=== PATIENT | female | born 1960 | race Asian ===

== ENCOUNTER 2017-03-09 08:46 | Outpatient (CLI) | payer OTHER ==
[~2017-03-09] VITALS: Ht 157.5 cm; Wt 52.2 kg
[~2017-03-09 08:46] MED LIST: ALLE180T33 PO; AZAT50TA2 PO; COLA100C5 PO; FISH1000 PO; GLUC1CAP9 PO; LIAL1.2T PO; SING10TA32 PO; VITA-182 PO; ZOLO100T PO
[2017-03-09] MEDS ORDERED: NS 1,000 ML IV ONE (09:15)
[2017-03-09] MEDS ORDERED: PROPOFOL 500 MG/50 ML VIAL As Ordered ONE (10:47)
[2017-03-09] MEDS ORDERED: LIDOCAINE 2% INJ 100 MG/5 ML SDV (FOR ANES.) As Ordered ONE (10:47)
--- NOTE | 2017-03-09 11:07 | ROOR ---
Patient Name: Bree Wilson Procedure Date: 03/09/2017 10:41 AM Date of : 1960 Age: 56 Room: [facility] Gender: Female Note Status: Finalized Procedure: Total Colonoscopy to cecum + Bx. Indications: High risk colon cancer surveillance: Ulcerative colitis Providers: Desmond Barriga MD Referring MD: ROLAND WATKINS MD Requesting Provider: Medicines: Monitored Anesthesia Care Complications: No immediate complications. Procedure: Pre-Anesthesia Assessment: - The heart rate, respiratory rate, oxygen saturations, blood pressure, adequacy of pulmonary ventilation, and response to care were monitored throughout the procedure. The Colonoscope was introduced through the anus and advanced to the cecum, identified by appendiceal orifice and ileocecal valve. The colonoscopy was performed without difficulty. The patient tolerated the procedure well. The quality of the bowel preparation was fair. Findings: The perianal and digital rectal examinations were normal. Non-bleeding internal hemorrhoids were found during retroflexion. The hemorrhoids were small and Grade I (internal hemorrhoids that do not prolapse). No other significant abnormalities were identified in a careful examination of the remainder of the colon. Background biopsies were taken for histology with a cold forceps from the ascending colon, transverse colon, descending colon and rectosigmoid colon. These biopsy specimens were sent to Pathology. The exam was otherwise without abnormality on direct and retroflexion views. Impression: - Preparation of the colon was fair. - Non-bleeding internal hemorrhoids. - The examination was otherwise normal on direct and retroflexion views. - Background biopsies were taken from the ascending colon, transverse colon, descending colon and rectosigmoid colon. - The exam was otherwise normal to the cecum. Recommendation: - Patient has a contact number available for emergencies. The signs and symptoms of potential delayed complications were discussed with the patient. Return to normal activities tomorrow. Written discharge instructions were provided to the patient. - High fiber diet. - Discharge patient to home. - Continue present medications. - Await pathology results. - Telephone GI clinic for pathology results in 1 week. - Repeat colonoscopy in 5 years for surveillance based on pathology results. - Return to referring physician. - Check Portal Online for Path Results.([email or web address] - The findings and recommendations were discussed with the patient's family. Desmond Barriga MD Desmond Barriga MD 03/09/2017 11:07:38 AM This report has been signed electronically. Number of Addenda: 0 Note Initiated On: 03/09/2017 10:41 AM Estimated Blood Loss: Estimated blood loss: none.
[2017-03-09 11:25] VITALS: BP 109/56
== END 2017-03-09 11:45 | disposition home or self-care (01) ==
LOC: M OPP 08:46
PROVIDERS: ATTEND Internal Medicine Gastroenterology
DX: R19.7 Diarrhea, unspecified (principal); R10.2 Pelvic and perineal pain; K51.90 Ulcerative colitis, unspecified, without complications; Z86.010 Personal history of colon polyps; K64.0 First degree hemorrhoids; R63.4 Abnormal weight loss; R19.5 Other fecal abnormalities; D64.9 Anemia, unspecified; E78.5 Hyperlipidemia, unspecified; K59.00 Constipation, unspecified; I48.91 Unspecified atrial fibrillation; M19.90 Unspecified osteoarthritis, unspecified site; Z86.79 Personal history of other diseases of the circulatory system; Z98.1 Arthrodesis status; M79.7 Fibromyalgia; G25.81 Restless legs syndrome; F32.9 Major depressive disorder, single episode, unspecified; R51 Headache; G47.8 Other sleep disorders; R06.83 Snoring; F17.290 Nicotine dependence, other tobacco product, uncomplicated; Z88.2 Allergy status to sulfonamides; Z79.899 Other long term (current) drug therapy

== ENCOUNTER → 2018-03-03 | Outpatient (CLI) | payer OTHER | LOC: M RAD 16:26 | DX: R41.3 Other amnesia (principal) | CPT/HCPCS: 70544 ==

== ENCOUNTER → 2018-05-18 | Outpatient (REF) | payer OTHER ==
[2018-05-18 17:24] LABS: BASO # 0.1 10^3/uL (0.0-0.2); BASO % 0.9 % (0.0-1.0); EOS # 0.1 10^3/uL (0.0-0.50); EOS % 1.8 % (0.0-3.0); HEMATOCRIT 45.2 % (36.0-47.0); HEMOGLOBIN 14.7 g/dl (12.0-15.5); IMMATURE GRANULOCYTE % 0.6 % (0-3.0); LYMPH # 1.5 10^3/uL (1.5-4.5); LYMPH % 22.1 % (24.0-44.0); MEAN CORPUSCULAR HEMOGLOBIN 30.6 pg (27.0-33.0); MEAN CORPUSCULAR HGB CONC 32.5 g/dl (32.0-36.5); MONO # 0.4 10^3/uL (0.0-0.8); MONO % 6.4 % (0.0-5.0); NEUTROPHILS # 4.6 10^3/uL (1.8-7.7); NEUTROPHILS % 68.2 % (36.0-66.0); PLATELET COUNT, AUTOMATED 316 10^3/uL (150-450); RED BLOOD COUNT 4.81 10^6/uL (4.00-5.40); RED CELL DISTRIBUTION WIDTH 14.2 % (11.5-14.5); WHITE BLOOD COUNT 6.7 10^3/uL (4.0-10.0)
[2018-05-18 17:37] LABS: ALBUMIN 3.6 GM/DL (3.2-5.2); ALKALINE PHOSPHATASE 50 U/L (45-117); ALT/SGPT 37 U/L (12-78); ANION GAP 6 MEQ/L (8-16); AST/SGOT 29 U/L (7-37); BILIRUBIN,TOTAL 0.3 MG/DL (0.2-1.0); BLOOD UREA NITROGEN 10 MG/DL (7-18); CALCIUM LEVEL 8.3 MG/DL (8.5-10.1); CARBON DIOXIDE LEVEL 29 MEQ/L (21-32); CHLORIDE LEVEL 109 MEQ/L (98-107); FOLATE 17.7 NG/ML; FREE T4 0.98 NG/DL (0.76-1.46); GLOMERULAR FILTRATION RATE > 60.0 (>51); GLUCOSE, FASTING 82 MG/DL (70-100); POTASSIUM SERUM 4.2 MEQ/L (3.5-5.1); RHEUMATOID FACTOR QUANT < 10.0 IU/ML (<15.0); SODIUM LEVEL 144 MEQ/L (136-145); TOTAL PROTEIN 7.2 GM/DL (6.4-8.2); VITAMIN B12 LEVEL 520 PG/ML
[2018-05-18 17:47] LABS: ERYTHROCYTE SEDIMENTATION RATE 7 mm/hr (0-30)
[2018-05-23 00:06] LABS: ANTINUCLEAR ANTIBODIES DIRECT Negative (Negative); VITAMIN B1 LEVEL WHOLE BLOOD 135.4 nmol/L (66.5-200.0); VITAMIN E(ALPHA TOCOPHEROL) 10.6 mg/L (7.0-25.1)
== END ==
LOC: M LABNEURO 13:18
DX: E07.9 Disorder of thyroid, unspecified (principal); R51 Headache; G31.84 Mild cognitive impairment of uncertain or unknown etiology
CPT/HCPCS: 82746

== ENCOUNTER → 2021-06-07 | Outpatient (CLI) | payer OTHER | LOC: M RAD 11:10 | PROVIDERS: ATTEND Family Medicine | DX: R09.81 Nasal congestion (principal) ==

== ENCOUNTER 2022-08-20 06:37 | Day surgery (SDC) | payer OTHER ==
[~2022-08-20] VITALS: Ht 157.5 cm; Wt 60.3 kg
[~2022-08-20 06:37] MED LIST changes: +ASPI81TA26 PO; -AZAT50TA2 PO; +AZAT50TA37 PO; +CALC600C3 PO; +CVS1CAP2 PO; +ESTR1MIS PV; +GLUC1CAP10 PO; +LIDO5TD TOP; +MONT-5 PO; +NS 1,000 ML IV ONE; -SING10TA32 PO; +collagen PO
[2022-08-20] MEDS ORDERED: propofoL 200 MG/20 ML VIAL As Ordered ONE ×2 (07:30→08:18)
[2022-08-20] MEDS ORDERED: LIDOCAINE 2% 100MG/5ML SDV (FOR ANES.) As Ordered ONE (07:30)
[2022-08-20 08:45] VITALS: BP 121/75
== END 2022-08-20 09:00 | disposition home or self-care (01) ==
LOC: M OPP 06:37
PROVIDERS: ATTEND Internal Medicine Gastroenterology
DX: K64.0 First degree hemorrhoids (principal); K63.89 Other specified diseases of intestine; K51.90 Ulcerative colitis, unspecified, without complications; Z86.010 Personal history of colon polyps; I34.9 Nonrheumatic mitral valve disorder, unspecified; M79.7 Fibromyalgia; G43.909 Migraine, unspecified, not intractable, without status migrainosus; Z87.891 Personal history of nicotine dependence; Z79.51 Long term (current) use of inhaled steroids; Z79.82 Long term (current) use of aspirin; Z79.899 Other long term (current) drug therapy; Z79.890 Hormone replacement therapy; Z88.1 Allergy status to other antibiotic agents

== ENCOUNTER → 2024-01-01 | Outpatient (CLI) | payer OTHER ==
[~2024-01-01] MED LIST changes: -ESTR1MIS PV; +ESTR1VAG3 PV; -NS 1,000 ML IV ONE
== END ==
LOC: M WHC 12:54
PROVIDERS: ATTEND Nurse Practitioner Primary Care
DX: Z12.31 Encounter for screening mammogram for malignant neoplasm of breast (principal)

== ENCOUNTER → 2025-03-30 | Outpatient (CLI) | payer OTHER | LOC: M WHC 12:29 | PROVIDERS: ATTEND Nurse Practitioner Primary Care | DX: Z12.31 Encounter for screening mammogram for malignant neoplasm of breast (principal); Z13.820 Encounter for screening for osteoporosis; M85.852 Other specified disorders of bone density and structure, left thigh; R92.323 Mammographic fibroglandular density, bilateral breasts; Z98.82 Breast implant status ==

== ENCOUNTER → 2025-05-24 | Outpatient (CLI) | payer OTHER | LOC: M PLAIMG 13:10 | PROVIDERS: ATTEND Nurse Practitioner Family | DX: M67.814 Other specified disorders of tendon, left shoulder (principal); M25.462 Effusion, left knee ==